=== PATIENT | male | born 1965 | race Caucasian/White ===

== ENCOUNTER 2017-10-04 10:27 | Emergency (ER) | END 2017-10-04 12:14 | disposition home or self-care (01) ==

== ENCOUNTER 2018-02-04 22:16 | Emergency (ER) | END 2018-02-05 02:50 | disposition home or self-care (01) ==

== ENCOUNTER 2018-02-06 14:17 | Emergency (ER) | END 2018-02-06 18:31 | disposition home or self-care (01) ==

== ENCOUNTER 2018-02-08 13:00 | Emergency (ER) | END 2018-02-08 16:58 | disposition home or self-care (01) ==